=== PATIENT | male | born 1980 | race Caucasian/White ===

== ENCOUNTER 2017-04-12 11:21 | Outpatient (CLI) ==
[2015-01-12 12:42] VITALS: BMI 21.9
== END 2017-04-12 11:22 | disposition home or self-care (01) ==
LOC: LAB 11:21
PROVIDERS: ATTEND Nurse Practitioner Family
DX: Z00.00 Encounter for general adult medical examination without abnormal findings (principal)
CPT/HCPCS: 36415; 80053; 80061; 84443; 85025

== ENCOUNTER 2018-04-04 12:38 | Outpatient (CLI) ==
[2015-01-12 12:42] VITALS: BMI 21.9
[2018-04-04 16:21] VITALS: BMI 23.9
== END 2018-04-04 12:39 | disposition home or self-care (01) ==
LOC: RHC-LAB 12:38
PROVIDERS: ATTEND Nurse Practitioner Family
DX: Z00.00 Encounter for general adult medical examination without abnormal findings (principal)
CPT/HCPCS: 36415; 80053; 80061; 84443; 85008; 85025

== ENCOUNTER 2018-04-04 15:29 | Inpatient (IN) ==
[2018-04-04 16:21] VITALS: BMI 23.9
[2018-04-04] MEDS ORDERED: PROAIR HFA IH PRN (16:44)
[2018-04-04] MEDS ORDERED: VISTARIL PO PRN (17:00)
[2018-04-04] MEDS ORDERED: TYLENOL PO PRN (19:54)
[2018-04-04] MEDS ORDERED: NITROSTAT SL PRN (19:54)
[2018-04-04] MEDS ORDERED: ATARAX PO STA (21:53)
[2018-04-04] MEDS ORDERED: EFFEXOR XR PO STA (22:00)
[2018-04-04] MEDS ORDERED: ATARAX PO PRN (22:03)
--- NOTE | 2018-04-05 08:02 | HP ---
DATE OF SERVICE: 04/04/18 CHIEF COMPLAINT: 1. Rectal bleeding. 2. Severe anemia. SOURCE OF HISTORY: The patient and mother. HISTORY OF PRESENT ILLNESS: The patient began experiencing bleeding from the rectum toward the last part of January. The patient presented himself to [facility] near [place] 02/10/18 approximately. He was examined and had testing and was told that it was due to hemorrhoids. The bleeding seemed to have subsided with Preparation H. The patient's bleeding however had worsened in the last two weeks. The patient was seen by Diane Bull today at the [facility] and CBC showed severely low hemoglobin/hematocrit. Diane did discuss the case with me and I felt that this patient probably needs to be admitted to the hospital with very low hemoglobin and history of bleeding. The patient had a colonoscopy [address] Chua and had a large polyp. There was a second colonoscopy done February 2017. Prior to that was another colonoscopy because of rectal bleeding, minimal plus change in the form of the stool. The second colonoscopy did not see any polyps at all but the patient had diverticulosis. The patient was at [facility] because of what was termed suicidal ideation and was transferred to [place], [place] since there was no bed at [facility]. After that, the patient was seen by Chhaya Matamoros in [place] and was prescribed medication consisting of Effexor ER 150 and Trazodone, strength unknown, to be taken at bedtime but he discontinued the medication 04/02/18 because of sensation of palpitation. The patient has some jerky movements of the lower extremities intermittent. The Venlaxfaxine ER 150 was refilled on 03/21 as well as the Atarax 03/21/18. Antidepressant medications began toward the end of December. PAST PERSONAL HISTORY: Hernia repair 2013 Colonoscopy 2015 or 2017 because of change in the form of the stool plus some blood and a large polyp was removed by Dr. Chua. Hospitalization in [place], [place] for psychiatric problems for one week Hospitalization in [place] because of GI blood described as large amount - it did soak his pants down to the couch. FAMILY HISTORY: Mother hypertensive; father had asthma and COPD. The patient also was asthmatic when he was young. Grandfather on the maternal side had colon carcinoma and grandmother, maternal side had lung carcinoma and a smoker. Denies any diabetes , heart problems or strokes in the family. SOCIAL HISTORY: The patient is single and employed. He use to work with [employer]. He does not smoke any cigarettes and occasional use of alcohol. No history of drug abuse. MEDICATIONS: Venlafaxine ER 150 daily Hydroxyzine 25 mg daily Albuterol Sulfate one to two puffs q.4-6hr p.r.n. Trazodone - mg unknown - he stopped the medication 04/02/18 ALLERGIES: TRAZODONE IS AN ALLERGY AND I DOUBT IF THAT WAS THE REASON. THE PALPITATIONS MAY HAVE BEEN DUE TO THE INCREASING ANEMIA. WILL TRY TO GET AN EKG WELL TELEMETRY. CARDIOVASCULAR ADVERSE EFFECTS OF TRAZODONE INCLUDE TACHYCARDIA AND THAT MAY HAVE BEEN THE REASON. WILL GIVE A SMALL DOSE OF TRAZODONE 25 MG 1/2 OF 50 MG TABLET AND SEE WHAT HAPPENS. EKG AT THIS TIME HAS NORMAL SINUS RHYTHM AND NO TACHYCARDIA. REVIEW OF SYSTEMS: CONSTITUTIONAL: The patient has no fever or chills but some fatigue. EDGING SUPERVISOR: Denies any headaches, ataxia, syncopal episode or seizure events. VISUAL: Denies any blurred vision, double vision or loss of vision. AUDITORY: No symptoms. RESPIRATORY: No cough. No history of hemoptysis. CARDIOVASCULAR: Denies any chest pain or tightness. GASTROINTESTINAL: The patient had no nausea, anorexia or epigastric pain. This patient however has bleeding from the rectum and had continued more in the last two days. It began some time ago, the end of January. He had an episode of bleeding also in the past leading to the colonoscopy. GENITOURINARY: No pain, frequency or urgency of urination. MUSCULOSKELETAL: No symptoms. INTEGUMENT: No rash, pruritus or subcutaneous ecchymosis. ENDOCRINE: Negative. HEMATOLOGIC: The patient has persistent bleeding and had been since about the last week of January or the third week of January. The patient now markedly anemic. PSYCHIATRIC: The patient has history of depression. He has been treated by [facility]. PHYSICAL EXAMINATION: GENERAL: 37-year-old male that is alert, oriented times four, not dyspneic or tachypneic and cooperative. VITAL SIGNS: On admission, temperature 99.3, pulse 86, blood pressure 116/64 left and 124/70 right, respiratory rate 20, oxygen saturation 100% on room air. Height 5'8" and 157 lbs. HEAD: Unremarkable. Scalp: No active dermatitis. Face is symmetrical and equal with no facial weakness. Denies any tenderness in the frontal or maxillary sinus areas to palpation and/or pressure. EYES: Pupils equal/reactive to light, about 3 mm in size. Conjunctivae pale. Sclerae not icteric. MOUTH: No dentures. THROAT: No inflammation, tumors or exudate. NECK: No masses. No adenopathy. No bruit. CHEST: Symmetrical and equal with good expansion. LUNGS: Breath soundsd are heard on both sides. No rales or wheezing. HEART: Audible and regular with good tones and not tachycardic. ABDOMEN: Soft with no remarkable tenderness. No guarding. Bowel sounds are active. No masses palpable. No bruit. EXTERNAL GENITALIA: Not examined. RECTAL: Anosphincter is competent. There are no external hemorrhoids visible. The patient has some stool in the rectal vault but more liquid. There is no palpable tumor mass. There are some specks of red stool on the examining finger. I need to look at the stool when he moves his bowels. LOWER EXTREMITIES: Symmetrical and equal with no tenderness in the calf muscles. Anterior tibials, posterior tibials are present. UPPER EXTREMITIES: Symmetrical and equal. ASSESSMENT: 1. GASTROINTESTINAL BLEEDING, SOURCE UNDETERMINED. 2. SEVERE ANEMIA SECONDARY TO #1. 3. HISTORY OF DEPRESSION. 4. INVOLUNTARY MOTOR MOVEMENTS BOTH LOWER EXTREMITIES INTERMITTENT, CAUSE UNDETRMINED. THIS PATIENT HAD STOPPED THE TRAZODONE 04/02/18, TWO DAYS AGO. I DON'T KNOW IF THIS IS A WITHDRAWAL SYMPTOM. BECAUSE OF THE PALPITATION, THIS PATIENT PROBABLY WILL BE GIVEN SMALL DOSE OF TRAZODONE AND SEE IF THE INVOLUNTARY MOVEMENT STOPS AND THE PATIENT'S HEART RATE IS MONITORED BY TELEMETRY. I TOLD THE PATIENT WELL THE MOTHER THAT WE WOULD TRANSFER 3 UNITS OF BLOOD , POSSIBLE PROBLEMS WITH TRANSFUSION WITH DISEASES BEING TRANSMITTED BUT IT IS VERY UNLIKELY. I WILL TRY TO GET IN TOUCH WITH DR. CHUA TOMORROW TO SEE IF HE WOULD BE WILLING TO SEE THIS PATIENT. THE PATIENT CERTAINLY NEEDS TO HAVE COLONOSCOPY WELL ENDOSCOPY. THERE ARE NO UPPER GI SYMPTOMS. THERE WAS NO MENTION OF AN AVM DURING COLONOSCOPY. BLEEDING MAY BE COMING FROM DIVERTICULUM. TIME SPENT: GREATER THAN 65 MINUTES MTDD
[2018-04-05] MEDS ORDERED: EFFEXOR XR PO SCH ×2 (09:00)
[2018-04-05] MEDS ORDERED: NON-FORMULARY MEDICATION (Venlafaxine Hcl [Venlafaxine Hcl Er] 150 MG) PO SCH ×2 (09:00)
--- NOTE | 2018-04-05 10:52 | DI ---
EXAM: Single view of the chest. History: Palpitations Findings: Heart size is upper limits of normal. No focal consolidation. No appreciable pleural flu id and no pneumothorax. No acute osseous abnormalities. Impression: No acute cardiopulmonary process
[2018-04-05 13:26] VITALS: BP 112/67; TEMP 98.2
--- NOTE | 2018-04-06 11:11 | PN ---
DATE OF SERVICE: 04/05/18 CONVERSATION WITH PATIENT AND MOTHER. SUBJECTIVE: The nurse, Joanne Justin, was with me during the course of the conversation 11: 45am, 04/05/18. I talked to Sid as well as his mother in the room, 121. I did tell them that I was able to get in touch with Dr. Elizalde's office and talked to the Nurse Practitioner that works with him. They had the records and she told me about partly of the colonoscopy that was done. I told her that he had two colonoscopies with Dr. Elizalde. The reason for the colonoscopy on the last one in 2018 was abdominal pain with hematochezia. Findings were unremarkable. I did tell the Nurse Practitioner of the problems that this patient had. I told the Nurse Practitioner that the patient presented himself to [facility] near [place] February 10, 2018 because of anorectal bleeding. He was discharged with a diagnosis bleeding per rectum secondary to hemorrhoid. The patient continued to have bleeding and seemed to have decreased in amount but had increased in the last two to three week prior to this presentation. He was seen at the clinic at yesterday and his hgb and hct was markedly low, WBC 2.85, hgb 6.1 and 20.3, MCV 71.2, MCH 21.4. It appears to be an iron deficiency problem. Diane Bull did discuss the case with me and I felt that the patient probably needed to be admitted to the hospital for examination and transfusion and referral. Diane did get in the touch with the patient and advised about admission. The Mother mentioned about expenses. The patient had a repeat CBC while in the hospital and the HGB was down 5.8, RBC 2.61 and hct 18.6. The patient denied any abdominal pain. Rectal examination no tumor on the anal rectal canal and external hemorrhoids visible. The rectal opening was inspected and there were no fissures visible. The abdomen was unremarkable. His Reticulocyte count was 16.4 and absolute was 0.0511. Plt count and WBC normal. The patient was given 3 units transfusion and his hgb soon after transfusion was 7.4 and at 10:30am it was 8.1. I did inform them that I would like to transfer him to [facility]. I told them that I could not transfer him directly to Dr. Elizalde because that is not how things are done now but he would be admitted under hospitalist. I had to talk to that doctor wether he would accept this patient and Dr. Elizalde would see him on consult. If that is not possible he could be referred to [facility] or if not he could just present himself to their emergency room. I told them that I do not have anything else to offer to him at this point so no one is able to do a colonoscopy as well as endoscopy in this facility. I will try to get in touch with [facility] system and talk to the Doctor and see if he would admit this patient and Dr. Elizalde is going monotype machinist at 4:00pm today. This information was given to me by the Nurse Practitioner who works with him. The patient's alert and oriented times four with movement of all extremities and claimed that the bleeding is slight or light. Nurse describes the stool as bright, all the blood is bright red bleed dripping on the bowl and the stool is not mixed with the blood. It seemed like the blood is on the outside. I will try to discuss this with hospitalist. I also told the mother that they can go to the hospital that they like and present themselves to the emergency room for the problem. EFRAIN
--- NOTE | 2018-04-10 10:00 | DS ---
DATE OF SERVICE: 04/05/18 PATIENT IDENTIFICATION: 37-year-old male who came to [facility], seen by Diane Bull because of rectal bleeding. The patient's hemoglobin was 6.1 and Diane did talk to me with regards to the findings and the complaint. The patient did not have any abdominal pain. The patient also had no nausea, anorexia or vomiting. This patient had been bleeding for some time and somewhat significant on 02/10/18 and presented to [facility] and discharged with a diagnosis of bleeding from the hemorrhoid. The patient continued to bleed more in the last two to three weeks prior to the presentation to the clinic. Because of the persistent bleeding, the patient was admitted to the hospital for examination and see if we can define the source of the bleeding. The patient's rectal examination was negative for any tumor or any large amount of blood. There were some specks of blood. The rectal vault was somewhat distended with fluid. The repeat hemoglobin at the hospital done several hours after the previous one now down to 5.8 from 6.1, hematocrit 18.6 down from the previous of 20+. The patient was given 3 units of packed red cells through the night and the hemoglobin at 4 a.m. was 7.4 and at 10:30 a.m. was 8.1, hematocrit 25.3. The coagulation profile is normal. Serum Ferritin level was low 3.03. The reticulocyte count, hemoglobin equivalent 16.4, reticulocyte percent is 1.90. Reticulocyte is 0.0511. I had talked to the patient as well as his mother about the course of treatemnt. They are agreeable for transfer but I did tell them that I have to talk to the hospitalist first before the transfer. I told them that I had talked to Dr. Elizalde's nurse practitioner who told me that they would see the patient once the patient has been admitted to [facility]. I was able to get in touch with the Transfer Center and did have a chance to talk to Dr. Flores. At the end of the discussion, he accepted the patient into his services. The patient and mother was then advised about the acceptance of the transfer and that he will be transferred to [facility] and we are waiting for the bed. I did get word that the bed is open and available and so the patient will be transferred and records to be sent with them. I did not get any records from [facility] but I did get records from [facility] emergency room. The presentation to the emergency room was not from GI bleed but from psychological problems, suicidal ideation. The IV site will be left in place and the patient will be transported by ambulance to [facility]. FINAL DIAGNOSES: 1. GASTROINTESTINAL BLEEDING, SOURCE UNDETERMINED, SEVERE. HEMOGLOBIN 5.6. 2. FINE RASH AT THE BACK PROBABLY CONTACT DERMATITIS. THERE IS NO OTHER RASH ON THE BODY EXCEPT THE BACK. Lungs were clear to auscultation at time of discharge. Heart is normal sinus rhythm with no murmur. Abdomen nontender. He has movement of all extremities. He is alert and oriented. the palpebral conjunctivae looks less pale than on admission. The patient's hemoglobin on 12/19/17 at [facility] emergency room was 16.1. Diagnosis at that presentation was depression with suicidal ideation. The patient's blood pressure was normal at supine and remained about the same on standing. FINAL DIAGNOSES: 1. SEVERE ANEMIA SECONDARY TO GI BLEED, SOURCE UNDETERMINED. 2. HISTORY OF DEPRESSION SEEN BY DARRYL MANJARREZ. 3. TRANSFUSED WITH THREE UNITS OF PACKED CELLS. TIME SPENT: GREATER THAN 30 MINUTES MTDD
== END 2018-04-05 14:30 | DRG 812 ==
LOC: MEDSURG B 15:29
PROVIDERS: ADMIT General Practice; ATTEND General Practice
PROC: 30233N1 Transfusion of Nonautologous Red Blood Cells into Peripheral Vein, Percutaneous Approach (ICD-10-PCS; principal; 2018-04-04)
PROC: 30233N1 Transfusion of Nonautologous Red Blood Cells into Peripheral Vein, Percutaneous Approach (ICD-10-PCS; 2018-04-05)
DX: D64.9 Anemia, unspecified (principal); L25.9 Unspecified contact dermatitis, unspecified cause; F32.9 Major depressive disorder, single episode, unspecified; R25.9 Unspecified abnormal involuntary movements
CPT/HCPCS: 36415; 36430; 80053; 80306; 81001; 82272; 82728; 84466; 84484; 85014; 85018; 85025; 85045; 85610; 85730; 86850; 86900; 86922; 93005; 93010

== ENCOUNTER 2018-04-05 14:33 | Outpatient (CLI) ==
[2018-04-04 16:21] VITALS: BMI 23.9
== END 2018-04-05 14:57 | disposition short-term general hospital (02) ==
LOC: AMBL 14:33
PROVIDERS: ATTEND Emergency Medicine
DX: K62.5 Hemorrhage of anus and rectum (principal)

== ENCOUNTER 2018-04-24 14:07 | Outpatient (CLI) | END 2018-04-24 14:08 | disposition home or self-care (01) | LOC: RHC-LAB 14:07 | PROVIDERS: ATTEND Nurse Practitioner Family | DX: D64.9 Anemia, unspecified (principal); K62.5 Hemorrhage of anus and rectum | CPT/HCPCS: 36415; 80053; 85008; 85025; 85610; 85730 ==

== ENCOUNTER 2018-04-24 14:12 | Inpatient (IN) ==
[2018-04-24] MEDS ORDERED: SODIUM CHLORIDE 1,000 ML IV STA (14:36)
--- NOTE | 2018-04-24 14:38 | ED.PDOC ---
General ED Provider: Dr. LEVON SKINNER Chief Complaint: Weakness Stated Complaint: Hx of Anemia. Recent GI bleed and required transfusion. Was to see Dr Harrington tomorrow but this morning had profuse bright red rectal bleeding. Hgb obtained by PCP and was 6 gm. Sent to ER for Eval Time Seen by Physician: 14:45 Mode of Arrival: Walk-In Information Source: Patient, Family Exam Limitations: No limitations Primary Care Provider: JF ESCOBAR Nursing and Triage Documentation Reviewed and Agree: Yes Does patient meet sepsis criteria?: No System Inflammatory Response Syndrome: Not Applicable Sepsis Protocol: For patient's 13 years and over: Temp is 96.8 and below OR 101 and greater Pulse >90 BPM Resp >20/minute Acutely Altered Mental Status Are patient's symptoms suggestive of a new infection, such as: -Pneumonia -Skin, Soft Tissue -Endocarditis -UTI -Bone, Joint Infection -Implantable Device -Acute Abdominal Infection -Wound Infection -Meningitis -Blood Stream Catheter Infection -Unknown GI Complaint Exam - GI Bleed Complaint/Exam Patient Complains of: Reports: Rectal bleeding Symptoms Are: Still present (stable -none currently) Severity: Reports: Bright red blood-rectum Location of Pain: Reports: Diffuse Character: Reports: Cramping. Denies: Sharp, Dull Aggravating: Reports: None Alleviating: Reports: None Associated Signs and Symptoms: Denies: Back Pain, Pallor, Dizziness, Weakness, Syncope, Constipation, Nausea, Rectal pain, Bruising, Weight loss, Recent abnormal coags Related History: Reports: Similar episode GI Bleed Risk Factors: Reports: None Recent Colonoscopy: Yes (no findings) Recent EGD: No Related Surgical History: Reports: None Abdominal Findings: Present: None Rectal Exam: Present: Normal Findings, Heme positive Differential Diagnoses: Enterocolitis, Hemorrhoids, Ulcerative Colitis Review of Systems - Review Of Systems Constitutional: Reports: No symptoms Eyes: Reports: No symptoms Ears, Nose, Mouth, Throat: Reports: No symptoms Respiratory: Reports: No symptoms Cardiac: Reports: No symptoms GI: Reports: Blood streaked bowels, Poor fluid intake, Rectal bleeding : Reports: No symptoms Musculoskeletal: Reports: No symptoms Skin: Reports: No symptoms Neurological: Reports: No symptoms Endocrine: Reports: No symptoms Hematologic/Lymphatic: Reports: No symptoms All Other Systems: Reviewed and Negative Past Medical History - Past Medical History Previously Healthy: Yes Endocrine: Reports: None Cardiovascular: Reports: None Respiratory: Reports: None Hematological: Reports: None Gastrointestinal: Reports: None Genitourinary: Reports: None Neuro/Psych: Reports: None Musculoskeletal: Reports: None Cancer: Reports: None - Surgical History General Surgical History: Reports: None - Family History Family History: Reports: None - Social History Smoking Status: Never smoker Hx Substance Use: No Alcohol Screening: None Physical Exam - Physical Exam Appearance: Ill-appearing, Thin Ill-appearing: Moderate Pain Distress: None Eyes: Conjunctiva pale ENT: Ears normal, Nose normal, Oropharynx normal Neck: Supple Respiratory: Airway patent, Breath sounds clear, Breath sounds equal, Respirations nonlabored Cardiovascular: RRR, Pulses normal, No rub, No murmur GI/: Soft, No masses, Bowel sounds normal, No Organomegaly, Tender Musculoskeletal: Normal strength, ROM intact, No edema, No calf tenderness Skin: Warm, Dry, Normal color Neurological: Sensation intact, Motor intact, Reflexes intact, Cranial nerves intact, Alert, Oriented Psychiatric: Affect appropriate, Mood appropriate Physician Notification - Case Discussed Physician Notified: Dr Harrington Time of Notification: 16:00 (Will not see patient in hospital.) Physician Notified: Dr Ortiz Time of Notification: 17:30 (will admit obs, transfuse and ) Critical Care Note - Critical Care Note Total Time (mins): 60 Course - Course Hematology/Chemistry: 04/24/18 17:26 04/24/18 17:20 Orders, Labs, Meds: Lab Review 04/24/18 04/24/18 04/24/18 15:00 17:20 17:26 WBC 7.06 RBC 2.51 L Hgb 5.3 L* Hct 18.9 L MCV 75.3 L MCH 21.1 L MCHC 28.0 L RDW Coeff of Po 17.2 H Plt Count 275 Sodium 139.5 Potassium 3.96 Chloride 105.9 Carbon Dioxide 26.5 Anion Gap 11.06 BUN 11.3 Creatinine 0.89 Estimated GFR (MDRD) 96.00 BUN/Creatinine Ratio 12.69 Glucose 104.8 Calcium 8.96 Total Bilirubin 0.24 AST 18.9 ALT 16.9 Alkaline Phosphatase 50.7 Total Protein 6.08 L Albumin 3.90 Globulin 2.18 Albumin/Globulin Ratio 1.78 Lipase 41.3 Stl Occult Blood (IFOB) Positive Stool Occult Blood #2 No specimen received Stool Occult Blood #3 No specimen received Blood Type Antibody Screen Crossmatch (AHG) 04/24/18 17:35 WBC RBC Hgb Hct MCV MCH MCHC RDW Coeff of Po Plt Count Sodium Potassium Chloride Carbon Dioxide Anion Gap BUN Creatinine Estimated GFR (MDRD) BUN/Creatinine Ratio Glucose Calcium Total Bilirubin AST ALT Alkaline Phosphatase Total Protein Albumin Globulin Albumin/Globulin Ratio Lipase Stl Occult Blood (IFOB) Stool Occult Blood #2 Stool Occult Blood #3 Blood Type O POSITIVE Antibody Screen Negative Crossmatch (AHG) See Detail Orders Category Date Time Status ADMIT PATIENT INPATIENT .TO MEDSURG (MONITORED BED) ADMISSION 04/24/18 17: 31 Active GIVE HS SNACK 2100 CARE 04/24/18 14:36 Inactive TELEMETRY MONITORING TELE CARE 04/24/18 17:32 Active HS SNACK DIETARY 04/24/18 Dinner Ordered CBC HEMOGRAM ONLY Stat LAB 04/24/18 17:26 Completed CMP [COMPREHENSIVE METABOLIC PANEL] Stat LAB 04/24/18 17:20 Completed LIPASE Stat LAB 04/24/18 17:20 Completed OCCULT BLOOD, STOOL Stat LAB 04/24/18 15:00 Completed Packed Red Blood Cells [PACKED CELLS] Stat LAB 04/24/18 17:35 Results TYPE AND SCREEN Stat LAB 04/24/18 17:35 Results Sodium Chloride 0.9% [Sodium Chloride] 1,000 ml MEDS 04/24/18 14:36 Discontinued IV BOLUS Medications Discontinued Medications Generic Name Dose Route Start Last Admin Trade Name Freq PRN Reason Stop Dose Admin Sodium Chloride 1,000 mls @ 1,000 mls/hr 04/24/18 14:36 04/24/18 15:14 Sodium Chloride IV 04/24/18 15:35 1,000 mls/hr BOLUS STA Administration Vital Signs: Temp Pulse Resp BP Pulse Ox 04/24/18 17:34 92 H 108/45 L 100 04/24/18 17:31 98 H 101/44 L 100 04/24/18 17:05 96 H 103/57 L 98 04/24/18 14:12 97.5 F L 79 20 122/67 98 Departure - Departure Time of Disposition: 17:20 Disposition: PLACED OBSERVATION Discharge Problem: GI (gastrointestinal hemorrhage), Anemia Condition: Fair Pt referred to PMD for follow-up: Yes IPMP verified?: No Allergies/Adverse Reactions: Allergies trazodone Adverse Reaction (Severe, Verified 04/24/18 14:23) Dizziness, heart palpitations Patient will notify mental health and drugstore GI suspected bleed per family around same time as began medication Home Medications: Ambulatory Orders Hydroxyzine Pamoate 25 mg PO Daily PRN 04/04/18 Venlafaxine HCl [Venlafaxine HCl ER] 150 mg PO DAILY 04/04/18 Ferrous Sulfate 325 mg PO DAILY 04/13/18 Disposition Discussed With: Patient, Family
[2018-04-24] MEDS ORDERED: LASIX IVP STA (19:43)
[2018-04-24] MEDS ORDERED: HYDROXYZINE PAMOATE 25 MG PO SCH (20:00)
[2018-04-24] MEDS ORDERED: LASIX ONE (20:43)
[2018-04-24 22:32] VITALS: BMI 23.3
--- NOTE | 2018-04-24 23:11 | DI ---
EXAM: PA and lateral views of the chest. HISTORY: Chest tightness. FINDINGS: The bones are unremarkable. The cardiac silhouette and pulmonary vasculature are within no rmal limits. The costophrenic angles are clear. No infiltrate or consolidation. Impression: No acute cardiopulmonary disease.
[2018-04-25 04:57] VITALS: BP 108/59; TEMP 98.1
[2018-04-25] MEDS ORDERED: VISTARIL PO PRN (08:56)
[2018-04-25] MEDS ORDERED: FERROUS SULFATE PO SCH (09:00)
[2018-04-25] MEDS ORDERED: NON-FORMULARY MEDICATION (Venlafaxine Hcl [Venlafaxine Hcl Er] 150 MG) PO SCH (09:00)
[2018-04-25] MEDS ORDERED: NON-FORMULARY MEDICATION (Ferrous Sulfate [Ferrous Sulfate] 325 MG) PO SCH (09:00)
[2018-04-25] MEDS ORDERED: EFFEXOR XR PO SCH (09:00)
--- NOTE | 2018-04-25 09:51 | HP ---
DATE OF SERVICE: 04/24/18 CHIEF COMPLAINT: Weakness, near syncopal episode and rectal bleeding. SOURCE OF HISTORY: The patient and mother HISTORY OF PRESENT ILLNESS: This patient is known to have severe anemia when he was admitted to this facility, discharged 04/05/18. He was transferred to [facility]. He was under hospitalist and Dr. Elizalde also had seen him but did not do a colonoscopy but instead did a Barium Enema. The Barium Enema appears to be normal. He was admitted and was discharged Monday. He could not be followed by them because of his insurance and so the patient had made an appointment with a GI doctor in [place] and has an appointment tomorrow at 10 :45. He had been having blood in the stool intermittently and had it Monday as well as on the day of admission. He went to the clinic initially and the patient was noted to have severe anemia on CBC and he was then directed to go to the emergency room for further work up and possible transfer. They would not accept him as a patient in [place] for admission and so it was felt safer for this patient to be admitted here with blood transfusion and proceed to his appointment tomorrow with the GI doctor at 10:45. The patient also mentioned that he had chest tightness last night about 10-11:00pm while he was making his bed. He did not have any diaphoresis. He also mentioned that he did not feel well in the last two days prior to yesterday. He had no fever and no chills. Workup in the emergency room consisted of a CBC and CMP. The CBC showed a hgb of 5.3, hct 18.9, RBC 2.51, WBC 7.06, plt count 275,000. MCV and MCH are way below normal. The RDW is also elevated. The patient was then admitted to this facility with the plan of transfusing two units of blood and then transfer tomorrow. PAST PERSONAL HISTORY: The patient presented to [facility] near [place] and after examination was informed that the bleeding was from hemorrhoids. Preparation H was prescribed. The patient since then has had some intermittent bleeding and the bleeding had worsened in the last two weeks after admission . He presented to the [facility] and was found to have severe anemia and subsequently admitted. He did receive 3 units of packed red cells. He had previous colonoscopy about [address] Elizalde in [place]. Colonoscopy was done because of the change in the form of the stool and was found to have a large polyp that was removed. Psychiatric admission at the [facility]. Hernia repair in 2013. He had a Barium Enema in [facility], . Colonoscopy was not done. He was subsequently discharged after that. FAMILY HISTORY: The mother has hypertension, Father had asthma and COPD. The patient had asthma was he was a youngster but had outgrown. He had not had any asthmatic episode for some time. Maternal grandfather had colon carcinoma, Paternal grandma has lung carcinoma and was a smoker. No diabetes or strokes in the family. SOCIAL HISTORY: The patient is single, no longer employed. He used to work for [employer]. He does not smoke any cigarettes or use any tobacco products and no alcoholic beverages. He denies any history of drug abuse. MEDICATIONS: Venlafaxine ER 150mg PO daily Hydroxyzine Pamoate 25mg PO Daily as needed Albuterol Sulfate 1-2 puffs Q 4-6 hours PRN Ferrous Sulfate 325mg PO daily ALLERGIES: Trazodone REVIEW OF SYSTEMS: CONSTITUTIONAL: The patient has no fever or chills but is tired or fatigued and did not feel well in the last 2-3 days prior to admission. 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 No syncopal episode. No seizure events. VISUAL: Negative AUDITORY: No symptoms RESPIRATORY: No cough and no history of hemoptysis. No shortness of breath in spite of the anemia CARDIOVASCULAR: The patient had chest tightness last night about 10-11:00 without diaphoresis lasting for about 1-2 hours while he was making his bed. The patient no longer has any pain or upon presentation to the clinic and the emergency room. The sensation of the chest was described as somebody squeezing instead of an elephants foot on the chest or a ton of brick. It was dull. GASTROINTESTINAL: The patient had bleeding every time he has a bowel movement and the blood seemed to be outside of the stool. This patient's stool is not dark because of the iron that he is taking but previously the stool was always brown and was mixed with the blood. The patient did have some nausea today as well as vomiting and the vomit was without any blood. GENITOURINARY: The patient denies any pain or frequency of urination and no blood. MUSCULOSKELETAL: No significant muscular or joint pains. ENDOCRINE: Negative INTEGUMENT: No rash or pruritus or ecchymosis. HEMATOLOGIC: The patient has sever anemia, iron deficiency reason undetermined. This patient has chronic anal bleeding. PSYCHIATRIC: Affect is normal although the patient had history of depression and was hospitalized in [place], [place]. PHYSICAL EXAMINATION: GENERAL: 37 year old white who is alert and responsive and corporative. Not dyspneic or tachypneic. He looks pale. VITAL SIGNS: Temperature 97.5, pulse 79, respiratory rate 20, oxygen saturation 98 room air, blood pressure 122/67,. 5'8 and 158 pounds. HEAD: Unremarkable. Scalp has no active dermatitis. FACE: Symmetrical and equal with no facial weakness. No significant tenderness to palpation under pressure in the frontal and maxillary sinus areas. EYES: Pupils equal/reactive to light. Conjunctivae not pale compared to Hgb and hct numbers. Sclerae not icteric. MOUTH: Unremarkable. THROAT: No inflammation, tumors or exudate. NECK: No masses. No bruit. No tenderness. No rigidity. CHEST: Symmetrical and equal with good expansion. No tenderness. LUNGS: Breath sounds are heard in both sides. No rales or wheezing. HEART: Audible and regular with good tones. No murmurs. Not tachycardiac. ABDOMEN: Soft with no remarkable tenderness. No guarding. Bowel sounds are active. No masses palpable. No bruit. EXTERNAL GENITALIA: Not examined RECTAL: Anal sphincter is competent. No external hemorrhoids. The stool is brownish in color but mixed with some blood. There is not a large amount of blood in the rectum. Stool was Hemoccult positive. LOWER EXTREMITIES: Symmetrical and equal with some pain in the right ankle described as an ache. There is redness and tenderness in the ankle on the right side. Tibial pulses are present including the posterior tibials. UPPER EXTREMITIES: Symmetrical and equal with good exterity. ASSESSMENT: 1. Severe anemia, iron deficiency secondary to GI bleeding probably lower GI. 2. History of depression 3. Aching right ankle, cause undetermined 4. History of asthma but had not had any episodes for long time 5. History of colonoscopy later part of 2016 or early 2017 with a large colonic polyp removed PROGNOSIS: Guarded. PLAN: 1. 2 units of packed red cells 2. Repeat CBC 3. I have ordered CK plus Troponin because of the chest tightness that he last night as well as a chest x-ray and EKG since these were not done. 4. Discharge this patient tomorrow to keep his appointment with the GI doctor at 10:45 in [place]. TIME SPENT: GREATER THAN 65 MINUTES MTDD
--- NOTE | 2018-07-13 11:32 | DS ---
DATE OF SERVICE: 04/25/18 PATIENT IDENTIFICATION: 37 year old male was admitted to the hospital via the emergency room. GI bleeding began late January 2018. He was in [place], [place] and had a GI bleed and was told that it was from a hemorrhoid. He was admitted here in this facility 04/04/2018 and discharged 04/05/2018 and transferred to [facility] after discussing with the hospitalist. This patient had seen Dr. Elizalde before and will be seen again him. The patient received 3 unit transfusion with a hemoglobin of 5.6 and was discharged with a hemoglobin of 8.1 to [facility] on 04/05/2018. The patient had a barium enema, but no colonoscopy. He had a previous colonoscopy where a large polyp was supposedly removed. After that admission at [facility] he was advised that they could no longer follow him because of the change of his insurance. He then made an appointment with [facility] and his appointment was for 04/25/2018 at 10:45 a.m. He was in the emergency room at [facility] and [facility] would not accept him until his appointment and so this patient was admitted to the hospital for further care and transfusion prior to transfer. HOSPITAL COURSE: The bleeding episode began some three days ago. His hemoglobin is down to 5.3, hematocrit 18.9. He was given 2 units of packed red cells without any reaction to the transfusion. His hemoglobin on the next day, 04/25/2018 did rise to 7 from 5.3, hematocrit to 23.7 from 18.9. VITAL SIGNS: Vital signs at 6 o'clock in the morning showed a temperature of 98.1, pulse of 79, blood pressure 108/59, respiratory rate 20, oxygen saturation 99. The patient is pale, but not dyspneic, nor tachypneic. LUNGS: Clear to auscultation. HEART: Audible and regular. ABDOMEN: Soft with no tenderness, no guarding. Bowel sounds are active. No masses palpable and no bruit. RECTAL EXAMINATION: Revealed an anal sphincter that was competent. No external hemorrhoids. Stool is brownish in color, but mixed with some blood. There is not a large amount of blood in the rectum. LOWER EXTREMITIES: Some redness and tenderness of the right ankle. The pulses are all present. The patient was then transferred to keep his appointment at 10:45 a.m. with the GI doctor in [place]. The mother was agreeable and she would be driving her son to the appointment. FINAL DIAGNOSES: 1. SEVERE ANEMIA, IRON DEFICIENCY ACCOUNTED TO GI BLEED, SOURCE UNKNOWN 2. 2 UNIT TRANSFUSION DONE PRIOR TO TRANSFER. The patient was stable at the time of transfer. He was alert and oriented times four. Not dyspneic, nor tachypneic with movement of all extremities and no significant bleeding noted externally. PROGNOSIS: Guarded. This will remain as such until the source of the bleeding is known or what is causing the anemia. TIME SPENT: GREATER THAN 30 MINUTES MTDD
== END 2018-04-25 09:50 | disposition home or self-care (01) | DRG 812 ==
LOC: ED 14:12 → MEDSURG B 17:49
PROVIDERS: ADMIT General Practice; ATTEND General Practice
PROC: 30233N1 Transfusion of Nonautologous Red Blood Cells into Peripheral Vein, Percutaneous Approach (ICD-10-PCS; principal; 2018-04-24)
PROC: 30233N1 Transfusion of Nonautologous Red Blood Cells into Peripheral Vein, Percutaneous Approach (ICD-10-PCS; 2018-04-25)
DX: D64.9 Anemia, unspecified (principal); K92.2 Gastrointestinal hemorrhage, unspecified; K62.5 Hemorrhage of anus and rectum; R10.9 Unspecified abdominal pain; D62 Acute posthemorrhagic anemia
CPT/HCPCS: 36415; 36430; 80053; 82272; 82550; 83690; 84484; 85008; 85014; 85018; 85025; 85027; 85610; 85730; 86850; 86900; 86922; 87081; 93005; 93010; 96360; 96361; 99223; 99239; 99285

== ENCOUNTER 2018-06-29 18:37 | Emergency (ER) ==
[2018-06-29 18:49] VITALS: BMI 25.4
[2018-06-29] MEDS ORDERED: INFED 1,000 MG in SODIUM CHLORIDE 500 ML IV STA (20:17)
[2018-06-29] MEDS ORDERED: VENOFER 300 MG in SODIUM CHLORIDE 250 ML IV ONE (20:18)
[2018-06-29 21:46] VITALS: BP 108/58
--- NOTE | 2018-06-30 06:15 | ED.PDOC ---
General ED Provider: Dr. LEVON CORDOBA-ER Chief Complaint: Abnormal Labs Stated Complaint: i have been having rectal bleeding for mos--my gi doctor sent me to have some labs and i was told my blood count is low--i had blood in april Time Seen by Physician: 18:40 Mode of Arrival: Walk-In Information Source: Patient Exam Limitations: No limitations Primary Care Provider: JF ESCOBAR Nursing and Triage Documentation Reviewed and Agree: Yes Does patient meet sepsis criteria?: No System Inflammatory Response Syndrome: Not Applicable Sepsis Protocol: For patient's 13 years and over: Temp is 96.8 and below OR 101 and greater Pulse >90 BPM Resp >20/minute Acutely Altered Mental Status Are patient's symptoms suggestive of a new infection, such as: -Pneumonia -Skin, Soft Tissue -Endocarditis -UTI -Bone, Joint Infection -Implantable Device -Acute Abdominal Infection -Wound Infection -Meningitis -Blood Stream Catheter Infection -Unknown GI Complaint Exam - GI Bleed Complaint/Exam Patient Complains of: Reports: Rectal bleeding Onset/Duration: mos Symptoms Are: Resolved Severity: Reports: Bright red blood-rectum. Denies: Blood-streaked stool, Black tarry stool, Coffee ground emesis, Hematemesis Location of Pain: Reports: None Aggravating: Reports: None Alleviating: Reports: None Associated Signs and Symptoms: Reports: Dizziness GI Bleed Risk Factors: Reports: None Recent Colonoscopy: No (scheduled for next week) Recent EGD: No Abdominal Findings: Present: None Differential Diagnoses: Other Review of Systems - Review Of Systems Constitutional: Reports: No symptoms Eyes: Reports: No symptoms Ears, Nose, Mouth, Throat: Reports: No symptoms Respiratory: Reports: No symptoms Cardiac: Reports: No symptoms GI: Reports: Rectal bleeding : Reports: No symptoms Musculoskeletal: Reports: No symptoms Skin: Reports: No symptoms Neurological: Reports: No symptoms Endocrine: Reports: No symptoms Hematologic/Lymphatic: Reports: No symptoms All Other Systems: Reviewed and Negative Past Medical History - Past Medical History Previously Healthy: Yes Endocrine: Reports: None Cardiovascular: Reports: None Respiratory: Reports: None Hematological: Reports: None Gastrointestinal: Reports: None Genitourinary: Reports: None Neuro/Psych: Reports: None Musculoskeletal: Reports: None Cancer: Reports: None - Surgical History General Surgical History: Reports: None - Family History Family History: Reports: None - Social History Smoking Status: Never smoker Hx Substance Use: No Alcohol Screening: None Physical Exam - Physical Exam Appearance: Well-appearing Eyes: WILLARD, EOMI, Conjunctiva clear ENT: Ears normal, Nose normal, Oropharynx normal Neck: Supple Respiratory: Airway patent, Breath sounds clear, Breath sounds equal, Respirations nonlabored Cardiovascular: RRR, Pulses normal, No rub, No murmur GI/: Soft, Nontender, No masses, Bowel sounds normal, No Organomegaly Musculoskeletal: Normal strength, ROM intact, No edema, No calf tenderness Skin: Warm, Dry, Normal color Neurological: Sensation intact, Motor intact, Reflexes intact, Cranial nerves intact, Alert, Oriented Psychiatric: Affect appropriate, Mood appropriate Physician Notification - Case Discussed Physician Notified: dr bell Time of Notification: 07:00 Critical Care Note - Critical Care Note Total Time (mins): 0 Course - Course Hematology/Chemistry: 06/29/18 19:00 06/29/18 19:00 Orders, Labs, Meds: Lab Review 06/29/18 06/29/18 06/29/18 19:00 19:00 19:00 WBC 4.36 RBC 3.95 L Hgb 7.1 L Hct 25.7 L MCV 65.1 L MCH 18.0 L MCHC 27.6 L RDW Coeff of Po 15.4 H Plt Count 281 Immature Gran % (Auto) 0.2 Neut % (Auto) 45.4 Lymph % (Auto) 31.9 Major % (Auto) 15.4 H Eos % (Auto) 5.7 Baso % (Auto) 1.4 Immature Gran # (Auto) 0.0 Neut # (Auto) 2.0 Lymph # (Auto) 1.4 Major # (Auto) 0.7 Eos # (Auto) 0.3 Baso # (Auto) 0.1 Hypochromasia 1+ Anisocytosis 1+ Microcytosis 2+ Ovalocytes 1+ Sodium 137.4 Potassium 3.87 Chloride 100.5 Carbon Dioxide 27.1 Anion Gap 13.67 BUN 8.6 L Creatinine 1.01 Estimated GFR (MDRD) 83.00 BUN/Creatinine Ratio 8.51 Glucose 88.1 Calcium 9.13 Iron 17.3 L Ferritin Total Bilirubin 0.28 AST 14.1 L ALT 10.7 Alkaline Phosphatase 59.7 Total Protein 6.97 Albumin 4.89 Globulin 2.08 Albumin/Globulin Ratio 2.35 Vitamin B12 347 Urine Color Urine Clarity Urine pH Ur Specific [place] Urine Protein Urine Glucose (UA) Urine Ketones Urine Blood Urine Nitrite Urine Bilirubin Urine Urobilinogen Ur Leukocyte Esterase Blood Type Antibody Screen Antibody Identification Direct Antiglob Test Crossmatch (AHG) 06/29/18 06/29/18 06/29/18 19:00 19:07 19:30 WBC RBC Hgb Hct MCV MCH MCHC RDW Coeff of Po Plt Count Immature Gran % (Auto) Neut % (Auto) Lymph % (Auto) Major % (Auto) Eos % (Auto) Baso % (Auto) Immature Gran # (Auto) Neut # (Auto) Lymph # (Auto) Major # (Auto) Eos # (Auto) Baso # (Auto) Hypochromasia Anisocytosis Microcytosis Ovalocytes Sodium Potassium Chloride Carbon Dioxide Anion Gap BUN Creatinine Estimated GFR (MDRD) BUN/Creatinine Ratio Glucose Calcium Iron Ferritin 5.05 L Total Bilirubin AST ALT Alkaline Phosphatase Total Protein Albumin Globulin Albumin/Globulin Ratio Vitamin B12 Urine Color Yellow Urine Clarity Clear Urine pH 5.5 Ur Specific [place] 1.010 Urine Protein Negative Urine Glucose (UA) Negative Urine Ketones Negative Urine Blood Negative Urine Nitrite Negative Urine Bilirubin Negative Urine Urobilinogen 0.2 Ur Leukocyte Esterase Negative Blood Type O POSITIVE Antibody Screen Positive Antibody Identification Pending Direct Antiglob Test Negative Crossmatch (AHG) See Detail Orders Category Date Time Status ORDER H&H 1HR POST TRANSFUSION ONCE CARE 06/29/18 19:25 Active PRBC LEUKOREDUCED ONCE CARE 06/29/18 19:25 Active IV [ED IV/MEDIPORT/POWERPORT] .ONCE EMERGENCY 06/29/18 19:28 Active ANTIBODY IDENTIFICATION Stat LAB 06/29/18 19:30 Results CBC W/ AUTO DIFF Stat LAB 06/29/18 19:00 Completed COMPREHENSIVE METABOLIC PANEL Stat LAB 06/29/18 19:00 Completed DIRECT CHRISTY Stat LAB 06/29/18 19:30 Results FERRITIN Stat LAB 06/29/18 19:00 Completed IRON Stat LAB 06/29/18 19:00 Completed PACKED CELLS Stat LAB 06/29/18 19:30 Results RBC MORPHOLOGY Stat LAB 06/29/18 19:00 Completed TYPE AND SCREEN Stat LAB 06/29/18 19:30 Results URINALYSIS C & S IF INDICATED Stat LAB 06/29/18 19:07 Completed VITAMIN B12 Stat LAB 06/29/18 19:00 Completed 0.9 % Sodium Chloride [Saline Flush] MEDS 06/29/18 19:28 Active 1 syr IVF PRN PRN Iron Sucrose Complex [Venofer] 300 mg MEDS 06/29/18 20:18 Discontinued 0.9 % Sodium Chloride [Sodium Chloride] 250 ml IV ONCE Medications Generic Name Dose Route Start Last Admin Trade Name Freq PRN Reason Stop Dose Admin Sodium Chloride 1 syr 06/29/18 19:28 Saline Flush IVF PRN PRN To flush IV Discontinued Medications Generic Name Dose Route Start Last Admin Trade Name Freq PRN Reason Stop Dose Admin Iron Sucrose 300 mg/ Sodium 265 mls @ 166 mls/hr 06/29/18 20:18 06/29/18 21: 36 Chloride IV 06/29/18 21:53 166 mls/hr ONCE ONE Administration Vital Signs: Temp Pulse Resp BP Pulse Ox 06/29/18 21:45 98.6 F 88 16 108/58 L 99 06/29/18 18:38 98.6 F 70 20 123/77 98 Departure - Departure Time of Disposition: 06:50 Disposition: HOME SELF-CARE Discharge Problem: GI (gastrointestinal hemorrhage) Qualifiers: GI bleed type/associated pathology: unspecified gastrointestinal hemorrhage type Qualified Code(s): K92.2 - Gastrointestinal hemorrhage, unspecified Instructions: Iron Deficiency Anemia (ED) Condition: Good Pt referred to PMD for follow-up: Yes IPMP verified?: No Additional Instructions: keep appt for colonoscopy next week----f/u with pcp Allergies/Adverse Reactions: Allergies trazodone Adverse Reaction (Severe, Verified 06/29/18 18:49) Dizziness, heart palpitations Patient will notify mental health and drugstore GI suspected bleed per family around same time as began medication Home Medications: Ambulatory Orders Hydroxyzine Pamoate 25 mg PO Daily PRN 04/04/18 Venlafaxine HCl [Venlafaxine HCl ER] 150 mg PO DAILY 04/04/18 Disposition Discussed With: Patient
[2018-06-30 08:05] VITALS: TEMP 97.8
== END 2018-06-30 08:06 | disposition home or self-care (01) ==
LOC: ED 18:37
DX: K92.2 Gastrointestinal hemorrhage, unspecified (principal); D50.9 Iron deficiency anemia, unspecified; R42 Dizziness and giddiness; D64.9 Anemia, unspecified
CPT/HCPCS: 36415; 36430; 80053; 81001; 82607; 82728; 83540; 85008; 85014; 85018; 85025; 86850; 86880; 86900; 86922; 99283

== ENCOUNTER 2018-06-30 08:10 | Outpatient (CLI) ==
[2018-06-29 18:49] VITALS: BMI 25.4
[2018-06-30 17:23] VITALS: BP 124/64; TEMP 97.9
== END 2018-06-30 08:11 | disposition home or self-care (01) ==
LOC: OPMED 08:10
PROVIDERS: ATTEND Family Medicine
DX: D64.9 Anemia, unspecified (principal)
CPT/HCPCS: 36415; 36430; 85014; 85018; 86850; 86880; 86900; 86922